=== PATIENT | male | born 1960 | race Caucasian/White ===

== ENCOUNTER 2019-08-15 23:26 | Emergency (ER) | payer OTHER, SELFPAY ==
--- NOTE | ~2019-08-15 | XR_ITS ---
XR abdomen/kub 1V 08/16/2019 01:30 Indication: Right flank pain Procedure: KUB Comparison: No prior studies for comparison. Findings: Bowel gas pattern is nonobstructive. Moderate lumbar spondylosis. No urolithiasis identifie d. No acute osseous abnormality. No osteolytic or sclerotic lesions. Impression: 1: No acute abdominal abnormality. Reviewed, dictated and finalized at location A. Impression: 1: No acute abdominal abnormality.
--- NOTE | ~2019-08-15 | CT_ITS ---
EXAMINATION: CT abdomen pelvis wo con DATE: 08/16/2019 01:26 INDICATION: Right flank and groin pain TECHNIQUE: Computed tomography (CT) of the abdomen and pelvis was performed without intravenous contr ast. The dose-length product was 1434.57 mGy-cm. Automated exposure control and iterative reconstruct ion technique were employed. COMPARISON: None. FINDINGS: Lung bases are unremarkable. No significant pleural or pericardial effusion. Heart size nor mal. Mild atherosclerosis of the aorta. Prostate gland is enlarged. Moderate bladder distention. The liver, spleen, pancreas, adrenal glands and kidneys are unremarkable. Gallbladder is present. The re is nonspecific stranding in the anterior subcutaneous fat of the abdomen, possibly from previous i njections. Mild lumbar spondylosis. Nonobstructive bowel gas pattern. No free air or free fluid. IMPRESSION: 1. Enlarged prostate gland with moderate bladder distention, likely due to bladder outlet obstruction . Reviewed, dictated and finalized at location A. IMPRESSION: 1. Enlarged prostate gland with moderate bladder distention, likely due to blad manny outlet obstruction.
--- NOTE | ~2019-08-15 | XR_ITS ---
XR hip RT 2V w AP pelvis 08/16/2019 00:34 INDICATION: Right groin pain PROCEDURE: AP pelvis and 2 views right hip COMPARISON: No prior studies for comparison. FINDINGS: Fracture, dislocation or subluxation is not identified. Pelvic rings are intact. There are femoral vascular calcifications. The soft tissues appear within normal limits. No foreign bodies are identified. IMPRESSION: 1: NO ACUTE BONE OR JOINT ABNORMALITY IDENTIFIED. Reviewed, dictated and finalized at location A.
[2019-08-15 23:36] VITALS: BP 160/83; PULSE 95; RESP 18; TEMP 36.3; O2SAT 96
[2019-08-16] MEDS: KETOROLAC (*BKC) 60 MG/2 ML VIAL IM (00:38)
--- NOTE | 2019-08-16 00:41 | ED.BACK ---
HPI - Back Pain/Injury General Chief Complaint: Back Pain/Injury Stated Complaint: groin pain Time Seen by Provider: 08/15/19 23:54 Source: patient Mode of arrival: ambulatory Limitations: no limitations History of Present Illness HPI Narrative: This patient is a 59 year old male who presents for evaluation of right posterior lower back pain starting 4 days ago. He states that 4 days ago he was wrestling with his dog and he felt a twinge in his right lower back radiating around to his right groin. His pain is worse with position. He thinks it feels better with sitting. He has been taking naproxen for his pain. He denies nausea, vomiting, fever, dysura, hematuria. He also denies lower extremity weakness, numbness or tingling. He has had sciatica in the past and this feels similar. Pertinent past history: prior back pain Related Data Home Medications Medication Instructions Recorded Confirmed atorvastatin 80 mg tablet 80 mg PO DAILY 07/02/19 coenzyme [id number] 100 mg-100 cap PO 07/02/19 unit capsule insulin NPH isoph U-100 human 100 40 unit SUB-Q BID ml 07/02/19 unit/mL (3 mL) subcutaneous pen insulin regular human 100 unit/mL 40 unit SUB-Q .at meals ml 07/02/19 (3 mL) subcutaneous pen levothyroxine 125 mcg capsule 125 mcg PO DAILY 07/02/19 metformin 1,000 mg tablet 1,000 mg PO DAILY 07/02/19 tadalafil 20 mg tablet 20 mg PO DAILY PRN 07/02/19 tamsulosin 0.4 mg capsule 0.4 mg PO DAILY 07/02/19 telmisartan 40 1 tablet PO DAILY 07/02/19 mg-hydrochlorothiazide 12.5 mg tablet Allergies Allergy/AdvReac Type Severity Reaction Status Date / Time No Known Allergies Allergy Unverified 11/13/18 06:37 Review of Systems Review of Systems: All systems reviewed & are unremarkable except as noted in HPI and below Gastrointestinal: Gastrointestinal: Reports abdominal pain, Denies diarrhea, Denies nausea and Denies vomiting Genitourinary: Genitourinary: Denies hematuria Comments: urinary hesitancy PMFSH Past Medical History Medical History (Updated 08/16/19 @ 01:52 by Maira Arvizu MD) Essential hypertension Hypothyroidism Type 2 diabetes mellitus with insulin therapy Social History Social History (Updated 07/02/19 @ 09:46 by Soledad Vásquez [facility]) Smoking status: Never smoker Alcohol intake: current Drinks per week: 2 Gender identity (if verbalized by the patient): Male Exam Narrative: Exam Narrative: GENERAL: Well-appearing, well-nourished, and in no acute distress. HEAD: Normocephalic, atraumatic THROAT:Mucous membranes moist, Oropharynx normal without erythema, exudate, peritonsillar swelling or fluctuance NECK: Supple, without lymphadenopathy or mass RESPIRATORY: No respiratory distress, Airway patent, Respirations non-labored, Clear to auscultation without rales, rhonchi or wheeze HEART: Regular rate and rhythm. No murmur heard. Normal peripheral pulses. ABDOMEN: Soft, nontender, nondistended, normal active bowel sounds. No masses. No rebound or guarding, No organomegaly. EXTREMITIES: No edema, normal strength with full range of motion. SKIN: Warm, dry, normal color without rash NEURO: Alert and oriented x3. CN 2-12 grossly intact. No focal deficits. PSYCH: Normal mood and affect. Course Reevaluation(s) Reevaluation #1: PAtient states his pain is unchanged. Will perform CT Date: 08/16/19 Time: 01:15 Vital Signs Vital signs: Vital Signs Temperature 97.3 F L 08/15/19 23:36 Pulse Rate 95 08/15/19 23:36 Respiratory Rate 18 08/15/19 23:36 Blood Pressure 160/83 H 08/15/19 23:36 Pulse Oximetry 96 08/15/19 23:36 Temperature 97.3 F L 08/15/19 23:36 Pulse Rate 70 08/16/19 02:07 Respiratory Rate 18 08/16/19 02:07 Blood Pressure 158/70 H 08/16/19 02:07 Pulse Oximetry 98 08/16/19 02:07 MDM - Back Pain/Injury Lab Data Attestation: I reviewed the patient's lab results. Labs: Lab Results 08/16/19 Range/Units 00:
[2019-08-16 00:44] LABS: Add Urine Microscopic? YES; Appearance Urine Clear (Clear); Bilirubin Urine Negative (Negative); Blood Urine Negative (Negative); Color Urine Yellow (Yellow); Glucose Urine UA 3+ mg/dL (Negative); Ketones Urine Negative (Negative); Leukocyte Esterase Ur Negative LEU/UL (Negative); Mucus Urine Rare /lpf; Nitrate Urine Negative (Negative); Protein Urine 1+ mg/dL (Negative); Specific Grav Ur 1.027 (1.001-1.035); Squamous Epithelial Cell Urine Rare /hpf (Few); WBC Urine 0-3 /hpf
[2019-08-16 01:30] VITALS: BP 160/70; PULSE 76; RESP 18; O2SAT 97
[2019-08-16 02:07] VITALS: BP 158/70; PULSE 70; RESP 18; O2SAT 98
== END 2019-08-16 02:10 | disposition home or self-care (01) ==
PROVIDERS: Emergency Provider General Practice; PCP Internal Medicine
DX: M54.41 Lumbago with sciatica, right side (principal); N40.0 Benign prostatic hyperplasia without lower urinary tract symptoms; I10 Essential (primary) hypertension; E03.9 Hypothyroidism, unspecified; E11.9 Type 2 diabetes mellitus without complications; Z79.4 Long term (current) use of insulin; Z79.84 Long term (current) use of oral hypoglycemic drugs
CPT/HCPCS: 73502; 74018; 74176; 81001; 96372; 99284; A9270; J1885

== ENCOUNTER 2019-12-14 14:45 | Outpatient (CLI) | payer OTHER, SELFPAY ==
--- NOTE | ~2019-12-14 | XR_ITS ---
EXAMINATION: XR knee RT 3V EXAM DATE: 12/14/2019 15:17 INDICATION: M25.561 - Pain in right knee, ANTERIOR KNEE PAIN, INJURY IN JULY TECHNIQUE: Three projections of the right knee. There is no prior study for comparison. FINDINGS: No evidence osteochondral defect or joint body in the right knee joint. There is moderate patellofemoral, mild tibiofemoral primary osteoarthritis. There is possible small osteochondroma id entified on the lateral projection just above the patellofemoral joint space. There is a small joint effusion. There are arterial calcifications, arteriosclerosis. There is mild right patellar lateral s ubluxation. There are no acute fractures identified. IMPRESSION: 1. Moderate patellofemoral osteoarthritis, mild lateral patellar subluxation. 2. Possible distal femoral osteochondroma. Reviewed, dictated and finalized at location A.
[2019-12-14 15:50] LABS: Uric Acid 6.4 mg/dL (3.5-8.5)
== END 2019-12-14 14:46 | disposition home or self-care (01) ==
PROVIDERS: PCP Internal Medicine; Visit Provider Nurse Practitioner
DX: M25.561 Pain in right knee (principal); M17.11 Unilateral primary osteoarthritis, right knee; S83.011A Lateral subluxation of right patella, initial encounter; X58.XXXA Exposure to other specified factors, initial encounter
CPT/HCPCS: 36415; 73562; 84550

== ENCOUNTER 2019-12-21 03:32 | Emergency (ER) | payer OTHER, SELFPAY ==
--- NOTE | ~2019-12-21 | XR_ITS ---
XR knee RT min 4V DATE: 12/21/2019 04:05 INDICATION: Right knee pain for one month, posterior knee pressure. TECHNIQUE: 4 views COMPARISON: 12/14/2019 right knee FINDINGS: There is moderately prominent loss of. Prominent joint space height and mild periarticular spurring at the medial compartment. There is moderately prominent patellofemoral osteoarthritis as we ll. No fracture or dislocation or joint effusion is evident. No periosteal reaction or bone destruction. There is extensive calcification of the femoral, popliteal and trifurcation arteries. IMPRESSION: Osteoarthritis involving particularly the medial and patellofemoral compartments No fracture or dislocation or joint effusion Extensive atherosclerotic calcification Reviewed, dictated and finalized at location A.
[2019-12-21 03:37] VITALS: BP 170/68; PULSE 79; RESP 18; TEMP 36.4; O2SAT 100
--- NOTE | 2019-12-21 04:12 | ED.LOWEXIN ---
HPI - Extremity Injury (Lower) General Chief Complaint: Extremity Injury, Lower Stated Complaint: Right knee pain and pressure Time Seen by Provider: 12/21/19 03:36 Source: RN notes reviewed History of Present Illness HPI Narrative: Patient presents to emergency department from home for right leg pain. Patient states that symptoms began earlier today. Patient states pain is in the right posterior thigh and radiates down into the right posterior calf. He states that he has a history of chronic knee pain from an old football injury and he has been seen by his PCP for this and recently had x-rays and scheduled to see orthopedics December 29. He states that the posterior leg pain is new and began today. He states he was working in his garage earlier. He denies any direct trauma or injury he denies any hip or ankle pain denies any numbness or tingling in extremity Related Data Home Medications Medication Instructions Recorded Confirmed atorvastatin 80 mg tablet 80 mg PO DAILY 07/02/19 12/11/19 coenzyme [id number] E 100 mg-100 cap PO 07/02/19 12/11/19 unit capsule insulin NPH isoph U-100 human 100 40 unit SUB-Q BID ml 07/02/19 12/11/19 unit/mL (3 mL) subcutaneous pen insulin regular human 100 unit/mL 40 unit SUB-Q .at meals ml 07/02/19 12/11/19 (3 mL) subcutaneous pen levothyroxine 125 mcg capsule 125 mcg PO DAILY 07/02/19 12/11/19 metformin 1,000 mg tablet 1,000 mg PO DAILY 07/02/19 12/11/19 tadalafil 20 mg tablet 20 mg PO DAILY PRN 07/02/19 12/11/19 tamsulosin 0.4 mg capsule 0.4 mg PO DAILY 07/02/19 12/11/19 telmisartan 40 1 tablet PO DAILY 07/02/19 12/11/19 mg-hydrochlorothiazide 12.5 mg tablet Allergies Allergy/AdvReac Type Severity Reaction Status Date / Time naproxen Allergy Severe Nausea and Verified 12/21/19 03:44 [From Flanax (naproxen)] Vomiting Review of Systems Review of Systems: Narrative: Gen.: Denies fevers or chills CV: Denies chest pain Respiratory: Denies shortness of breath Musculoskeletal: See HPI Neuro: Denies numbness, tingling, weakness Skin: Denies rash Endo: Denies DM PMFSH Past Medical History Medical History Essential hypertension Hypothyroidism Type 2 diabetes mellitus with insulin therapy Social History Social History Smoking status: Never smoker Alcohol intake: current Drinks per week: 2 Gender identity (if verbalized by the patient): Male Exam Narrative: Exam Narrative: APPEARANCE: No acute distress, nontoxic, resting in bed Eyes: EOMI HEENT: Normocephalic, atraumatic, RESPIRATORY: No respiratory distress MUSCULOSKELETAl: Right lower extremity is tender to palpation over the right posterior thigh and knee with mild tenderness in the right posterior calf, no tenderness of the right anterior medial or lateral knee, no tenderness of the ankle or hip, pain when the leg is extended at the knee and flexion at the hip in the region of the hamstring, forage motion of the knee and ankle without pain, dorsalis pedis pulse 2+, neurovascular intact NEURO: Awake and alert. Following commands, speech normal, no focal deficits SKIN:: Warm, dry. Normal Color no rash or lesions Course Course Emergency Course: Patient states he drove himself to the emergency department with Tylenol for pain Called and discussed with Dr. Hagen on-call for Dr. Leroy. Agrees with plan for Lovenox with plan for ultrasound exam to rule out DVT Discussed with patient results of workup and diagnosis. Discussed need for follow-up with primary care, proper use of medication, and reasons to return to the emergency department. Patient understands and agrees to current treatment plan Vital Signs Vital signs: Vital Signs Temperature 97.5 F L 12/21/19 03:37 Pulse Rate 79 12/21/19 03:37 Respiratory Rate 18 12/21/19 03:37 Blood Pressure 170/68 H 12/21/19 03:37 Pulse Oximetry 100
[2019-12-21] MEDS: ACETAMINOPHEN 500 MG TABLET 1000 MG PO (04:22)
[2019-12-21 04:27] LABS: Basophils Absolute Auto 0.1 K/mm3 (0.0-0.1); Eosinophils Absolute Auto 0.3 K/mm3 (0-0.3); Eosinophils Percent Auto 4.4 % (0-4.4); Hematocrit 44.4 % (42.0-52.0); Hemoglobin 15.6 g/dL (14.0-18.0); Immature Granulocyte Absolute 0.04 K/mm3 (0.00-0.031); Immature Granulocyte Percent A 0.6 % (0-0.5); Lymphocytes Absolute Auto 1.51 K/mm3 (0.9-3.2); Mean Corpuscular HGB Conc 35.1 g/dl (32-36); Mean Corpuscular Hemoglobin 32.4 pg (26-34); Mean Corpuscular Volume 92.3 fl (80-100); Mean Platelet Volume 10.3 fl (7.4-10.4); Monocytes Absolute Auto 0.6 K/mm3 (0.1-0.6); Neutrophils Absolute Auto 4.3 K/mm3 (1.3-6.7); Platelet Count Result 176 k/mm3 (150-375); Red Blood Count 4.81 M/mm3 (4.6-6.20); Red Cell Distribution Width 12.9 % (11.5-14.5); White Blood Count 6.9 K/mm3 (4.5-10.0)
[2019-12-21 04:37] LABS: Prothrombin Time 12.8 Seconds (11.1-14.7)
[2019-12-21 04:38] LABS: Partial Thromboplastin Time 27.4 SECONDS (22.3-36.8)
[2019-12-21 04:47] VITALS: BP 112/64; PULSE 71; RESP 16; O2SAT 98
[2019-12-21 05:09] LABS: Alanine Aminotransferase 28 U/L (4-50); Albumin Level 4.4 g/dL (3.5-5.1); Alkaline Phosphatase 49 U/L (38-126); Anion Gap 8 mmol/L (8-16); Aspartate Amino Transferase 32 U/L (17-59); Bilirubin,Total 0.8 mg/dL (0.2-1.3); Blood Urea Nitrogen 18 mg/dL (9-20); Calcium 9.5 mg/dL (8.4-10.2); Carbon Dioxide 28 mmol/L (22-30); Chloride 104 mmol/L (98-107); Estimated Glomerular Filt Rate > 60; Glucose 167 mg/dL (75-110); Sodium 140 mmol/L (137-145)
[2019-12-21] MEDS: ENOXAPARIN 100 MG/ML SYRINGE 118 MG SUB-Q (05:21)
== END 2019-12-21 05:26 | disposition home or self-care (01) ==
PROVIDERS: Emergency Provider Emergency Medicine; PCP Internal Medicine
DX: M79.661 Pain in right lower leg (principal); I10 Essential (primary) hypertension; E03.9 Hypothyroidism, unspecified; E11.9 Type 2 diabetes mellitus without complications; Z79.4 Long term (current) use of insulin
CPT/HCPCS: 36415; 73564; 80053; 85025; 85610; 85730; 96372; 99283; A9270; J1650

== ENCOUNTER 2019-12-21 07:31 | Outpatient (CLI) | payer OTHER, SELFPAY ==
--- NOTE | ~2019-12-21 | US_ITS ---
US venous doppler LE RT DATE: 12/21/2019 08:21 INDICATION: Right knee pain for one month. Posterior knee pressure. Severe calf pain, swelling, tight ness TECHNIQUE: Real-time and color flow imaging and Doppler analysis of the veins of the right lower extr emity COMPARISON: None FINDINGS: The right greater saphenous vein is patent. There is spontaneous and phasic flow and normal color flow signal and normal compression of the common femoral, femoral and popliteal veins. There is incomplete compression of portions of the peroneal and posterior tibial veins suggesting gretchen p venous thrombosis. IMPRESSION: Incomplete compression of portions of the peroneal and posterior tibial vein suggesting d eep venous thrombosis of these vessels Reviewed, dictated and finalized at Location A. Reviewed, dictated and finalized at location A. IMPRESSION: Incomplete compression of portions of the peroneal and posterior ti bial vein suggesting deep venous thrombosis of these vessels
== END 2019-12-21 07:32 | disposition home or self-care (01) ==
PROVIDERS: PCP Internal Medicine; Visit Provider Internal Medicine
DX: M79.661 Pain in right lower leg (principal)
CPT/HCPCS: 93971